=== PATIENT | female | born 1925 | race Caucasian/White ===

== ENCOUNTER → 2016-11-19 | Outpatient (CLI) | payer OTHER ==
[~2016-11-19] VITALS: Ht 142.2 cm; Wt 85.0 kg
[~2016-11-19] MED LIST: AMLODIPINE-BEN1 EAC2 PO; CALTRATE PLUS1 EACH PO; CHILDREN'S ASPI81 M1 PO; CILOSTAZOL100 MG PO; LIPITOR20 MG PO
[2016-11-19 09:15] VITALS: BP 175/72
== END | disposition home or self-care (01) ==
LOC: IVINF 08:55
DX: M81.0 Age-related osteoporosis without current pathological fracture (principal)
CPT/HCPCS: 96365; J3489